=== PATIENT | female | born 1965 | race Caucasian/White ===

== ENCOUNTER 2021-10-29 09:05 | Outpatient (CLI) | payer BC | END 2021-10-29 09:06 | disposition home or self-care (01) | LOC: LABBT 09:05 | PROVIDERS: ATTEND Urology | DX: U07.1 COVID-19 (principal); Z01.818 Encounter for other preprocedural examination; N20.1 Calculus of ureter | CPT/HCPCS: 80048; 81001; 85027; 85610; 85730; 86850; 86900; 86901; 87086; 93005; 93010; U0003; U0005 ==

== ENCOUNTER 2021-11-02 08:25 | Day surgery (SDC) | payer BC ==
[2021-10-27 16:05] VITALS: BMI 49.6
[2021-10-29 10:29] LABS: Bilirubin Neg (Negative); Blood, Urine 250 (Negative); Clarity Cloudy (Clear); Glucose, Urine (Dipstick) Normal (Negative); Ketone, Urine Negative (Negative); Leukocyte 25 (Negative); Nitrite Negative (Negative); Protein, Urine (Dipstick) 30 mg/dl (Neg-Trace); Urobilinogen Normal mg/dL (Less than 2); pH, Urine 6.5 (5.0-9.0)
[2021-10-29 10:43] LABS: Hemoglobin 12.9 g/dL (12.0-15.5); Mean Corpuscular HGB CONC 31.8 g/dL (32.0-36.0); Mean Corpuscular Hemoglobin 30.6 pg (27.0-33.0); Mean Corpuscular Volume 96.4 fl (81.6-98.3); Platelet Count 355 10x3/uL (150-450); RBC Distribution Width 13.5 % (11.5-14.5); Red Blood Cell (RBC) Count 4.21 10x6/uL (3.90-5.03); White Blood Cell (WBC) Count 9.2 10x3/uL (3.5-10.5)
[2021-10-29 10:48] LABS: Bacteria/HPF Rare-Few HPF (None Seen); RBC/HPF Greater than 50 HPF (0-3); Squamous Epithelial 0-3 HPF (0-3); WBC/HPF 0-3 HPF (0-3)
[2021-10-29 10:53] LABS: INR-International Normal Ratio 0.9; PTT 25.7 sec (22.0-33.0); Prothrombin Time 10.4 sec (9.5-12.1)
[2021-10-29 11:01] LABS: Anion Gap 16 mmol/L (10-20); BUN (Urea Nitrogen) 12 mg/dL (9.8-20.1); Calc. Creatinine Clearance 0 mL/min (70-130); Calcium 9.4 mg/dL (7.8-10.44); Carbon Dioxide 24 mmol/L (22-29); Chloride 103 mmol/L (98-107); Glucose 96 mg/dL (70-105); Potassium 3.9 mmol/L (3.5-5.1); Sodium 139 mmol/L (136-145)
[2021-10-30 08:57] LABS: SARS-CoV-2 PCR by NAA DETECTED (NotDetected)
[2021-11-02] MEDS ORDERED: Levofloxacin 500 mg/D5W 100 ml Premix Bag ONE (08:59)
[2021-11-02] MEDS ORDERED: Iothalamate Meglumine 60% 50 ML VIAL FS ONE (09:48)
[2021-11-02] MEDS ORDERED: ceFAZolin 2 GM/Dextrose 50 ML IVPB ONE (10:02)
[2021-11-02] MEDS ORDERED: Midazolam HCl 2 mg/2 ml Vial ONE (10:02)
[2021-11-02] MEDS ORDERED: cefTRIAXone\\ROCEPHIN 2 GM VIAL ONE (10:02)
[2021-11-02] MEDS ORDERED: Sodium Chloride 0.9% 100 ML ONE (10:03)
[2021-11-02] MEDS ORDERED: Fentanyl 100 MCG/2 ML VIAL ONE ×5 (10:17→14:04)
[2021-11-02] MEDS ORDERED: Rocuronium Bromide 10 MG/ML (10ML VIAL) ONE (10:18)
[2021-11-02] MEDS ORDERED: PROPOFOL 200 MG/20 ML VIAL ONE (10:18)
[2021-11-02] MEDS ORDERED: Dexamethasone 20 MG/5 ML VIAL ONE (10:18)
[2021-11-02] MEDS ORDERED: PHENYLEPHRINE-NS 100 MCG/ML 10 ML SYRINGE ONE (10:18)
[2021-11-02] MEDS ORDERED: Ondansetron PF 4 MG/2 ML Vial ONE (10:18)
[2021-11-02] MEDS ORDERED: EPINEPHrine 1 MG/ML AMP ONE (10:23)
[2021-11-02] MEDS ORDERED: Bupivacaine 0.25% HCL 30 ML VIAL ONE (10:23)
[2021-11-02] MEDS ORDERED: Rocuronium Bromide 50 MG/5 ML VIAL ONE (12:28)
[2021-11-02] MEDS ORDERED: SUGAMMADEX SODIUM 200 MG/2 ML VIAL ONE (12:28)
[2021-11-02] MEDS ORDERED: Meperidine HCl/PF 25 MG/ML VIAL SLOW IVP PRN (13:01)
[2021-11-02] MEDS ORDERED: HYDROmorphone 2 MG/ML VIAL SLOW IVP PRN (13:01)
[2021-11-02] MEDS ORDERED: Promethazine HCl 25 MG/ML VIAL IVPB PRN (13:01)
[2021-11-02] MEDS ORDERED: Promethazine HCl 25 MG/ML VIAL IM PRN (13:01)
[2021-11-02] MEDS ORDERED: HYDROmorphone 0.5 MG/0.5 ML SYRINGE ONE ×2 (13:16→13:31)
[2021-11-02] MEDS ORDERED: Phenazopyridine HCl 100 MG TAB ONE (13:55)
[2021-11-02] MEDS ORDERED: Oxybutynin 5 MG TAB ONE (13:55)
[2021-11-02] MEDS ORDERED: HYDROcodone/Acetaminophen 10/325 mg Tablet PO PRN ×2 (15:07)
[2021-11-02] MEDS ORDERED: Mag-Al 1200 mg/1200 mg/30 ML UDCUP PO PRN (15:07)
[2021-11-02] MEDS ORDERED: diphenhydrAMINE 50 MG/ML VIAL IVP PRN (15:07)
[2021-11-02] MEDS ORDERED: Oxybutynin 5 MG TAB PO PRN (15:07)
[2021-11-02] MEDS ORDERED: hydrALAZINE 20 MG/ML VIAL SLOW IVP PRN ×2 (15:07)
[2021-11-02] MEDS ORDERED: Ondansetron PF 4 MG/2 ML Vial IVP PRN (15:07)
[2021-11-02] MEDS ORDERED: Morphine 4 MG/ML VIAL SLOW IVP PRN ×2 (15:07→15:24)
[2021-11-02] MEDS ORDERED: Bisacodyl 10 MG SUPP PR PRN (15:07)
[2021-11-02] MEDS ORDERED: Phenazopyridine HCl 97.5 MG TABLET PO PRN (15:07)
[2021-11-02] MEDS ORDERED: Sodium Chloride 0.9% 1,000 ML IV SCH (15:15)
[2021-11-02] MEDS ORDERED: clonazePAM 0.5 MG TAB PO PRN (15:18)
[2021-11-02] MEDS ORDERED: Meperidine HCl/PF 25 MG/ML VIAL ONE (15:21)
[2021-11-02 15:23] LABS: #Basophils 0.1 thou/uL (0.0-0.2); #Eosinphils 0.1 thou/uL (0.0-0.7); #Lymphocytes 1.4 thou/uL (1.20-3.40); #Monocytes 0.2 thou/uL (0.11-0.59); #Neutrophils 11.2 thou/uL (1.40-6.50); %Basophils 0.4 % (0.0-1.0); %Eosinophils 0.7 % (0.0-10.0); %Monocytes 1.5 % (0.0-10.0); %Neutrophils 86.4 % (42.0-75.0); Hemoglobin 12.7 g/dL (12.0-16.0); Mean Corpuscular HGB CONC 33.4 g/dL (32.0-36.0); Mean Corpuscular Hemoglobin 31.9 pg (27.0-31.0); Mean Corpuscular Volume 95.4 fL (78.0-98.0); Mean Platelet Volume 6.3 fL (7.4-10.4); Platelet Count 369 thou/uL (130-400); RBC Distribution Width 12.6 % (11.5-14.5); Red Blood Cell (RBC) Count 3.98 mill/uL (4.20-5.40); White Blood Cell (WBC) Count 12.9 thou/uL (4.8-10.8)
[2021-11-02 15:43] LABS: Anion Gap 13 mmol/L (10-20); BUN (Urea Nitrogen) 16 mg/dL (9.8-20.1); Calc. Creatinine Clearance 136 mL/min (70-130); Calcium 8.6 mg/dL (7.8-10.44); Carbon Dioxide 23 mmol/L (22-29); Chloride 105 mmol/L (98-107); Glucose 147 mg/dL (70-105); Potassium 4.4 mmol/L (3.5-5.1); Sodium 137 mmol/L (136-145)
[2021-11-02] MEDS ORDERED: HYDROcodone/Acetaminophen 5/325 mg Tablet ONE (17:17)
[2021-11-02] MEDS ORDERED: busPIRone HCl 10 MG TAB PO SCH (21:00)
[2021-11-02] MEDS ORDERED: Docusate 100 MG CAP PO SCH (21:00)
[2021-11-02] MEDS ORDERED: Famotidine/PF 20 mg/2ml Vial SLOW IVP SCH (21:00)
[2021-11-03] MEDS ORDERED: cefTRIAXone\\ROCEPHIN 1 GM in Sodium Chloride 0.9% 100 ML IVPB SCH (07:15)
[2021-11-03] MEDS ORDERED: Venlafaxine HCl XR 150 MG CAP PO SCH (09:00)
[2021-11-03] MEDS ORDERED: Losartan 25 MG TAB PO SCH (09:00)
[2021-11-03] MEDS ORDERED: Hydrochlorothiazide 25 MG TAB PO SCH (09:00)
[2021-11-03] MEDS ORDERED: Amlodipine 5 MG TAB PO SCH (09:00)
== END 2021-11-02 18:10 | disposition home or self-care (01) ==
LOC: SDC 08:25
PROVIDERS: ATTEND Urology
PROC: 0TC33ZZ Extirpation of Matter from Right Kidney Pelvis, Percutaneous Approach (ICD-10-PCS; principal; 2021-11-02)
DX: N20.0 Calculus of kidney (principal); U07.1 COVID-19; I10 Essential (primary) hypertension; E78.5 Hyperlipidemia, unspecified; E66.01 Morbid (severe) obesity due to excess calories; Z68.42 Body mass index [BMI] 45.0-49.9, adult; Z79.899 Other long term (current) drug therapy; Z88.8 Allergy status to other drugs, medicaments and biological substances
CPT/HCPCS: 36415; 71045; 71046; 74018; 76000; 80048; 81001; 82365; 85025; 85027; 85610; 85730; 86850; 86900; 86901; 87086; 88300; C1729; C2617; J0171; J0690; J0696; J1100; J1170; J1956; J2175; J2250; J2405; J2704; J3010; J3490; J7620; Q9961-U8; S0020; U0003; U0005

== ENCOUNTER 2021-11-11 10:07 | Outpatient (CLI) | payer BC | END 2021-11-11 10:08 | disposition home or self-care (01) | LOC: BICRAD 10:07 | PROVIDERS: ATTEND Urology | DX: N20.0 Calculus of kidney (principal); Z96.0 Presence of urogenital implants | CPT/HCPCS: 74018 ==